=== PATIENT | female | born 1970 | race Caucasian/White ===

== ENCOUNTER → 2017-02-27 | Outpatient (CLI) | payer BC ==
[~2017-02-27] MED LIST: BACTRIM DS 8001 TAB PO; IBU600 MG PO; PERCOCET 325 MG1 TA2 PO; PROBIOTIC PO
== END ==
LOC: COL.RAD 02-15 13:00
DX: M46.1 Sacroiliitis, not elsewhere classified (principal)
CPT/HCPCS: G0260; J3301

== ENCOUNTER → 2017-11-20 | Outpatient (CLI) | payer BC | LOC: COL.RAD 12:48 | DX: M46.1 Sacroiliitis, not elsewhere classified (principal) | CPT/HCPCS: G0260; J3301 ==

== ENCOUNTER → 2017-11-30 | Outpatient (CLI) | payer BC | LOC: MC.RAD 07:40 | DX: Z12.31 Encounter for screening mammogram for malignant neoplasm of breast (principal); R92.0 Mammographic microcalcification found on diagnostic imaging of breast ==

== ENCOUNTER → 2017-12-07 | Outpatient (CLI) | payer BC | LOC: MC.RAD 08:30 | DX: R92.0 Mammographic microcalcification found on diagnostic imaging of breast (principal) ==

== ENCOUNTER → 2017-12-12 | Outpatient (CLI) | payer BC | LOC: MC.RAD 08:21 | DX: R92.1 Mammographic calcification found on diagnostic imaging of breast (principal); Z98.82 Breast implant status ==

== ENCOUNTER → 2019-05-19 | Outpatient (CLI) | payer BC | LOC: COL.RAD 13:48 | DX: M53.3 Sacrococcygeal disorders, not elsewhere classified (principal) | CPT/HCPCS: G0260; J3301 ==